=== PATIENT | male | born 1995 | race Caucasian/White ===

== ENCOUNTER 2016-07-23 13:09 | Emergency (ER) | payer SELFPAY ==
[~2016-07-23] VITALS: Ht 167.6 cm; Wt 65.8 kg
[2016-07-23 13:50] VITALS: BP 115/83
[2016-07-23] MEDS ORDERED: NAPROXEN 500 MG TABLET PO STA (14:16)
[2016-07-23] MEDS ORDERED: DICL100G7 TP (14:21)
[2016-07-23] MEDS ORDERED: METH4TAB2 PO (14:21)
[2016-07-23] MEDS ORDERED: HYDR-971 PO (14:21)
[2016-07-23] MEDS ORDERED: CYCL10TA2 PO (14:21)
[2016-07-23] MEDS ORDERED: NAPR500T8 PO (14:21)
--- NOTE | 2016-07-23 14:21 | PHYS DOC ---
Adult General Chief Complaint Chief Complaint: BACK PAIN OR INJURY HPI HPI Patient is a 21 year old male with no significant medical history who presents today with moderate throbbing bilateral thoracic pain worse on movement that began 3 days ago. Patient states he does heavy lifting at work. He states he works at a company that makes [employer] and he has to lift 50 pounds overweight. Patient denies the pain radiating to bilateral upper or lower extremities. Denies any numbness or tingling to bilateral lower upper or lower extremities. Denies any loss of bowel bladder function. Denies any urgency frequency dysuria. Denies any hematuria. Denies any history of kidney stones. Review of Systems Review of Systems Constitutional: Denies fever or chills [] Eyes: Denies change in visual acuity, redness, or eye pain [] HENT: Denies nasal congestion or sore throat [] Musculoskeletal: Thoracic pain Integument: Denies rash or skin lesions [] Neurologic: Denies headache, focal weakness or sensory changes [] Endocrine: Denies polyuria or polydipsia [] Current Medications Current Medications Current Medications Medications (Trade) Dose Ordered Sig/Carrie Start Time Stop Time Status Last Admin Dose Admin Acetaminophen/ Hydrocodone Bitart (Lortab 5/325) 1 tab 1X ONCE 07/23/16 14:30 07/23/16 14:31 Cyclobenzaprine HCl (Flexeril) 10 mg 1X ONCE 07/23/16 14:30 07/23/16 14:31 Naproxen (Naprosyn) 500 mg 1X STAT 07/23/16 14:16 07/23/16 14:20 DC Prednisone (Prednisone) 60 mg 1X ONCE 07/23/16 14:30 07/23/16 14:31 Allergies Allergies Allergies Coded Allergies Type Severity Reaction Last Updated Verified aloe vera Allergy Unknown 07/23/16 No Physical Exam Physical Exam Constitutional: Well developed, well nourished, no acute distress, non-toxic appearance. [] HENT: Normocephalic, atraumatic, bilateral external ears normal, oropharynx moist, no oral exudates, nose normal. [] Eyes: PERRLA, EOMI, conjunctiva normal, no discharge. [] Skin: Warm, dry, no erythema, no rash. [] Back: Diffuse paraspinal muscle tenderness to thoracic muscles, no midline thoracic spine tenderness, no CVA tenderness. [] Extremities: No tenderness, no cyanosis, no clubbing, ROM intact, no edema. [] Neurologic: Alert and oriented X 3, normal motor function, normal sensory function, no focal deficits noted. [] Psychologic: Affect normal, judgement normal, mood normal. [] Current Patient Data Vital Signs Vital Signs Date Time Temp Pulse Resp B/P (MAP) Pulse Ox O2 Delivery O2 Flow Rate FiO2 07/23/16 13:50 97.8 54 16 98 Room Air 97.8 EKG EKG [] Radiology/Procedures Radiology/Procedures [] Course & Med Decision Making Course & Med Decision Making Pertinent Labs and Imaging studies reviewed. (See chart for details) Patient is in the ED with thoracic muscle strain, patient was discharged with pain medicine and muscle relaxers. Follow-up with primary care doctor in one week. Dragon Disclaimer Dragon Disclaimer This electronic medical record was generated, in whole or in part, using a voice recognition dictation system. Departure Departure Impression: Primary Impression: Acute thoracic myofascial strain Disposition: 01 HOME, SELF-CARE Condition: STABLE Referrals: KSENIA HECK (PCP) Follow-up with your own doctor in one week Patient Instructions: Thoracic Strain Additional Instructions: You were seen for thoracic muscle strain. Take the prescribed pain medicine as ordered. Do not drive on the muscle relaxer and hydrocodone. You can apply heat to your back. Scripts Diclofenac Sodium (VOLTAREN) 100 Gm Gel..gram. 1 GM TP QID, #100 GM 2 Refills apply to the back Prov: CY COATES APRN 07/23/16 Cyclobenzaprine Hcl (CYCLOBENZAPRINE HCL) 10 Mg Tablet 1 TAB PO TID, #30 TAB Prov: CY COATES APRN 07/23/16 Naproxen (NAPROXEN) 500 Mg Tablet.dr 1 TAB PO BID, #60 TAB 1 Refill Prov: CY COATES APRN 07/23/16 Hydrocodone/Apap 5-325 (NORCO 5-325 TABLET) 1 Each Tablet 1-2 TAB PO Q4-6HRS, #14 TAB Prov: CY COATES APRN 07/23/16 Methylprednisolone (MEDROL) 4 Mg Tab.ds.pk 1 PKG PO UD, #1 PKG Prov: CY COATES APRN 07/23/16 Problem Qualifiers Primary Impression: Acute thoracic myofascial strain Encounter type: initial encounter Qualified Codes: S29.019A - Strain of muscle and tendon of unspecified wall of thorax, initial encounter CY COATES SWING FRAME GRINDER OPERATOR Jul 23, 2016 14:21
[2016-07-23] MEDS ORDERED: predniSONE 20 MG TABLET PO ONE (14:30)
[2016-07-23] MEDS ORDERED: HYDROcodone/APAP 5/325MG 1 TAB TABLET PO ONE (14:30)
[2016-07-23] MEDS ORDERED: CYCLOBENZAPRINE 10 MG TABLET. PO ONE (14:30)
== END 2016-07-23 14:36 | disposition home or self-care (01) ==
LOC: ER 13:09
DX: S29.012A Strain of muscle and tendon of back wall of thorax, initial encounter (principal); Z91.048 Other nonmedicinal substance allergy status; X58.XXXA Exposure to other specified factors, initial encounter; Y93.89 Activity, other specified; Y92.69 Other specified industrial and construction area as the place of occurrence of the external cause; Y99.8 Other external cause status
CPT/HCPCS: 99284; J7512

== ENCOUNTER 2017-04-09 18:58 | Emergency (ER) | payer SELFPAY ==
[2017-04-09] MEDS: IPRATRPIUM/ALBUTEROL 0.5/2.5MG 3 ML NEBU. NEB ×2 (19:25)
[2017-04-09 19:52] LABS: INFLUENZA A PATIENT POSITIVE (NEGATIVE); INFLUENZA B PATIENT NEGATIVE (NEGATIVE); OBC FLU VALID
== END 2017-04-09 20:08 | disposition home or self-care (01) ==
LOC: ER 18:58
DX: J20.9 Acute bronchitis, unspecified (principal); J09.X2 Influenza due to identified novel influenza A virus with other respiratory manifestations
CPT/HCPCS: 87804; 87804-59; 94640; 99284; J7620

== ENCOUNTER 2019-01-07 17:08 | Emergency (ER) | payer SELFPAY ==
[~2019-01-07] VITALS: Ht 167.6 cm; Wt 68.0 kg
[~2019-01-07 17:08] MED LIST: ALBU2.5V5 NEB; ALBU2.5V8 INH; AZIT250T PO; CYCL10TA2 PO; DICL100G18 TP; HYDR-3164 PO; METH4TAB2 PO; NAPR500T8 PO; PRED50TA PO
[2019-01-07 17:55] VITALS: BP 124/63
--- NOTE | 2019-01-07 18:08 | PHYS DOC ---
Past Medical History Past Medical History: No Pertinent History (SOL GARRETT APRN) Past Surgical History: No Surgical History (SOL GARRETT APRN) Additional Information: 1/2 PK/DAY Alcohol Use: None Drug Use: None (SOL GARRETT APRN) Attending Signature I have participated in the care of this patient and I have reviewed and agree with all pertinent clinical information above including history, exam, and recommendations. (DENIS MCPHERSON MD) Adult General Chief Complaint Chief Complaint: Congestion HPI HPI Patient is a 23 year old Male who presents with nasal congestion that started 3 days ago and he started taking kvej-luo-jdetykw cold medication and he bought Amoxicillin and took 2 tablets BID for 4 days and then last night began having a diarrhea. He states that he had one stool last night and took immodium and then states he has held it all day so he didnt go anymore. (SOL GARRETT APRN) Review of Systems Review of Systems HENT: nasal congestion or denies sore throat [] GI: Denies abdominal pain, nausea, vomiting, bloody stools. + diarrhea [] All other systems were reviewed and found to be within normal limits, except as documented in this note. (SOL GARRETT APRN) Allergies Allergies Allergies Coded Allergies Type Severity Reaction Last Updated Verified aloe vera Allergy Unknown 07/23/16 No (DENIS MCPHERSON MD) Physical Exam Physical Exam Constitutional: Well developed, well nourished, no acute distress, non-toxic appearance. [] HENT: Normocephalic, atraumatic, bilateral external ears normal, oropharynx moist, no oral exudates, nose normal.Nasal congestion. [] Eyes: PERRLA, EOMI, conjunctiva normal, no discharge. [] Neck: Normal range of motion, no tenderness, supple, no stridor. [] Cardiovascular:Heart rate regular rhythm, no murmur [] Lungs & Thorax: Bilateral breath sounds clear to auscultation [] Abdomen: Bowel sounds normal, soft, no tenderness, no masses, no pulsatile masses. [] Skin: Warm, dry, no erythema, no rash. [] Back: No tenderness, no CVA tenderness. [] Extremities: No tenderness, no cyanosis, no clubbing, ROM intact, no edema. [] Neurologic: Alert and oriented X 3, normal motor function, normal sensory function, no focal deficits noted. [] Psychologic: Affect normal, judgement normal, mood normal. [] (SOL GARRETT APRN) Current Patient Data Vital Signs Vital Signs Date Time Temp Pulse Resp B/P (MAP) Pulse Ox O2 Delivery O2 Flow Rate FiO2 01/07/19 17:55 98.7 77 18 124/63 (83) 97 Room Air 98.7 (DENIS MCPHERSON MD) EKG EKG [] (SOL GARRETT APRN) Radiology/Procedures Radiology/Procedures [] (SOL GARRETT APRN) Course & Med Decision Making Course & Med Decision Making The patient that he does not need any more antibiotic. I told the patient that he probably started having diarrhea because he is taking such high doses of amoxicillin. Patient to continue taking tbcp-jjd-evfqtvh Delsym cold medication and start trying to use a nasal spray and continue using Imodium if he is having any diarrhea. Abdomen is soft and nontender. Bowel sounds within normal limits. Denies fever, nausea, vomiting, chest pain, shortness of air, dizziness, headache, cough. Patient states he is eating and drinking appropriately. Speaks in full clear sentences. Ambulatory with a steady gait. Skin pink warm and dry. Mucous membranes are moist. Patient has a medical screening down and he is told to continue lmjw-bzv-ulyudzv medications. After registration into the room to speak with the patient patient chose not to continue care.[] (SOL GARRETT APRN) Dragon Disclaimer Dragon Disclaimer This electronic medical record was generated, in whole or in part, using a voice recognition dictation system. (SOL GARRETT APRN) Departure Departure Impression: Primary Impression: Congestion of nasal sinus Additional Impression: Diarrhea Disposition: 01 HOME, SELF-CARE Condition: STABLE Referrals: NO PCP (PCP) Patient Instructions: Diarrhea Additional Instructions: Continue using oagr-awg-zgqosam cold medication and use nasal spray. Continue using Imodium if you have diarrhea. Take plenty fluids. Problem Qualifiers Additional Impression: Diarrhea Diarrhea type: unspecified type Qualified Codes: R19.7 - Diarrhea, unspec ified SOL GARRETT APRN Jan 07, 2019 18:08 DENIS MCPHERSON MD Jan 08, 2019 03:56
== END 2019-01-07 18:20 | disposition home or self-care (01) ==
LOC: ER 17:08
DX: R09.81 Nasal congestion (principal); R19.7 Diarrhea, unspecified
CPT/HCPCS: 99281

== ENCOUNTER 2020-05-14 12:32 | Observation (INO) | payer SELFPAY ==
[~2020-05-14] VITALS: Ht 167.6 cm; Wt 80.4 kg
[~2020-05-14 12:32] MED LIST changes: -DICL100G18 TP; +DICL100G54 TP
[2020-05-14 12:51] LABS: BILIRUBIN,URINE NEGATIVE (NEG); CLARITY,URINE CLEAR; COLOR,URINE YELLOW; NITRITE,URINE NEGATIVE (NEG); PH,URINE 7.5 (<5.0-8.0); PROTEIN,URINE NEGATIVE (NEG-TRACE); UROBILINOGEN,URINE 0.2 mg/dL (0.2 mg/dL)
[2020-05-14 12:58] LABS: BARBITURATES NEG (NEG); BENZODIAZEPINES NEG (NEG); CANNABINOIDS POS (NEG); COCAINE NEG (NEG); METHADONE NEG (NEG); OPIATES NEG (NEG); PHENCYCLIDINE NEG (NEG)
--- NOTE | 2020-05-14 12:59 | PHYS DOC ---
Past Medical History Past Medical History: No Pertinent History (SOL GARRETT BOX COVERER HAND) Past Surgical History: No Surgical History (SOL GARRETT BOX COVERER HAND) Smoking Status: Current Every Day Smoker Alcohol Use: None Drug Use: None (SOL GARRETT BOX COVERER HAND) General Adult EDM: Chief Complaint: OVERDOSE HPI: HPI: Patient is a 25 year old male who presents with states that he thinks he may have overdosed but is unsure what he took. He states that is been hard for him to urinate. He states that he thinks he has been eating and drinking enough fluid. States he vomited once yesterday. He states that he began having body aches and a headache and some nausea last night. He states that 2:00 this morning he took 2 extra strength Tylenol and then about 5:00 this morning took 1 Aleve. Patient denies any other drug use except for marijuana. He states that last week it made him sick to his stomach when he drank so he quit drinking last week. He states he does not drink frequently. Patient is complaining of body aches and a headache. He rates his muscle pain and headache an 8 out of 10. It is not the worst headache he has ever had. Patient denies any past medical h istory. Patient girlfriend states that somebody has been giving him the small pills that they call "oxi" and she is unsure of what they are exactly. She states that he was slumped over on the couch all morning and was hard to arouse and she is unsure of what he is been taking. She states that she knows that he last took this unknown substance yesterday. Girlfriend states that she is unaware of how much he took. Patient denies chest pain, shortness of breath, cough, fever, nausea, diarrhea, syncope, dizziness, vision changes, numbness or tingling, depression, SI, HI, being around other sick contacts. (SOL GARRETT BOX COVERER HAND) Review of Systems: Review of Systems: Constitutional: Denies fever or chills. [] Eyes: Denies change in visual acuity. [] HENT: Denies nasal congestion or sore throat. [] Respiratory: Denies cough or shortness of breath. [] Cardiovascular: Denies chest pain or edema. [] GI: + Intermittent abdominal pain, denies nausea, +vomiting x1, denies bloody stools or diarrhea. + Unknown substance ingestion [] : Denies dysuria. [] Musculoskeletal: Denies back pain or joint pain. + Generalized body aches [] Integument: Denies rash. [] Neurologic: + headache, denies focal weakness or sensory changes. [] Endocrine: Denies polyuria or polydipsia. [] Lymphatic: Denies swollen glands. [] Psychiatric: Denies depression or anxiety. [] ([facility]) Heart Score: C/O Chest Pain: No Risk Factors: Risk Factors: DM, Current or recent (<one month) smoker, HTN, HLP, family history of CAD, obesity. Risk Scores: Score 0 - 3: 2.5% MACE over next 6 weeks - Discharge Home Score 4 - 6: 20.3% MACE over next 6 weeks - Admit for Clinical Observation Score 7 - 10: 72.7% MACE over next 6 weeks - Early Invasive Strategies ([facility]) Allergies: Allergies: Allergies Coded Allergies Type Severity Reaction Last Updated Verified aloe vera Allergy Unknown 07/23/16 No ([facility]) Physical Exam: PE: Constitutional: Well developed, well nourished, no acute distress, non-toxic appearance. [] HENT: Normocephalic, atraumatic, bilateral external ears normal, oropharynx moist, no oral exudates, nose normal. [] Eyes: PERRLA, EOMI, conjunctiva normal, no discharge. [] Neck: Normal range of motion, no tenderness, supple, no stridor. [] Cardiovascular:Heart rate regular rhythm, no murmur [] Lungs & Thorax: Bilateral breath sounds clear to auscultation [] Abdomen: Bowel sounds normal, soft, no tenderness, no masses, no pulsatile masses. [] Skin: Warm, dry, no erythema, no rash. [] Back: No tenderness, no CVA tenderness. [] Extremities: No tenderness, no cyanosis, no clubbing, ROM intact, no edema. [] Neurologic: Alert and oriented X 3, normal motor function, normal sensory function, no focal deficits noted. [] Psychologic: Affect normal, judgement normal, mood normal. Normal physical exam [] (SOL GARRETT APRN) EKG: EK and read by Dr. Ivy is sinus bradycardia and no STEMI. (SOL GARRETT APRN) Radiology/Procedures: Radiology/Procedures: [] Impression: [facility] [address] [place] [address] IMAGING REPORT Signed PATIENT: DUDLEY CASIANO ACCOUNT: [id number] : 1995 LOCATION: ER AGE: 25 SEX: M EXAM STATUS: PRE ER ORD. PHYSICIAN: SOL GARRETT APRN REASON: bodyaches. PROCEDURE: PORTABLE CHEST 1V EXAMINATION: XR CHEST 1V CLINICAL HISTORY: Body aches EXAM DATE/TIME: 05/14/2020 1:23 PM COMPARISON: None FINDINGS: Lines, Tubes, and Devices: None. Cardiomediastinal Silhouette: Within normal limits. Lungs and Pleura: No evidence of focal airspace consolidation or pleural effusion. Pulmonary vasculature unremarkable. Bones and Soft Tissues: No acute osseous abnormality. IMPRESSION: No evidence of acute cardiopulmonary abnormality. Electronically signed by: Spike Muse DO (05/14/2020 1:29 PM) [id number] DICTATED and SIGNED BY: SPIKE MUSE DO DATE: 05/14/20 [id number] (SOL GARRETT APRN) Course & Med Decision Making: Course & Med Decision Making Pertinent Labs and Imaging studies reviewed. (See chart for details) See HPI. Speaks in full clear sentences. Alert and oriented x4. Ambulatory with a steady gait. Abdomen is soft and nontender. PERRLA. Skin pink warm and dry. Vital signs are within normal limits. Answers all questions appropriately. Patient admitted to the nurse after head of the room that he went to a alliance party couple days ago and snorted some drugs but is unsure of what he took. Patient's heart rate is bradycardic at 39 to low 40s. He is asymptomatic at this time. I spoke to poison control and they stated to just do supportive care. Patient's UDS and alcohol level are negative. He was however positive for marijuana. To be running from 40-50 heart rate. Blood work shows no acute findings. After speaking with the patient he states that there are times that he gets really dizzy and drowsy and then will start to feel better. This could correspond or be symptomatic bradycardia. Patient agrees to be observed overnight. I will consult cardiology. He will be admitted by the hospitalist. I have spoken to Dr. Blue concerning this patient. [] (SOL GARRETT APRN) Dragon Disclaimer: Dragon Disclaimer: This electronic medical record was generated, in whole or in part, using a voice recognition dictation system. (SOL GARRETT APRN) Departure Departure Impression: Primary Impression: Bradycardia Additional Impression: Drug use Disposition: ADMITTED INPT THIS HOSP Admitting Physician: [place] (SOL GARRETT APRN) Condition: STABLE Referrals: NO PCP (PCP) Attending Signature Attending Signature I have reviewed the PA/COMMUNITY HEALTH WORKER's note and plan of care. I was available for consultation as needed during the patient's visit in the emergency department. I agree with the clinical impression, plan, and disposition. (REESE IVY DO) SOL GARRETT APRN May 14, 2020 12:59 REESE IVY DO May 14, 2020 18:51
[2020-05-14] MEDS ORDERED: IV NORMAL SALINE 1000ML BAG 1,000 ML IV ONE (13:00)
[2020-05-14 13:05] LABS: BASO % 1 % (0-3); EOS # 0.1 x10^3/uL (0.0-0.7); EOS % 2 % (0-3); HEMOGLOBIN 15.3 g/dL (13.0-17.5); LYMPH # 1.8 x10^3/uL (1.0-4.8); LYMPH % 28 % (24-48); MEAN CORPUSCULAR HEMOGLOBIN 32 pg (25-35); MEAN CORPUSCULAR HGB CONC 35 g/dL (31-37); MEAN CORPUSCULAR VOLUME 92 fL (79-100); MONO # 0.4 x10^3/uL (0.0-1.1); MONO % 6 % (0-9); NEUT # 4.1 x10^3/uL (1.8-7.7); NEUT % 64 % (31-73); PLATELET COUNT 190 x10^3/uL (140-400); RED BLOOD COUNT 4.77 x10^6/uL (4.30-5.70); RED CELL DISTRIBUTION WIDTH 12.6 % (11.5-14.5); WHITE BLOOD COUNT 6.4 x10^3/uL (4.0-11.0)
[2020-05-14 13:10] LABS: AMPHETAMINE/METHAMPHETAMINE NEG (NEG)
[2020-05-14 13:13] LABS: AMORPHOUS SEDIMENT,UR PRESENT /HPF
[2020-05-14 13:14] LABS: RBC,URINE 0 /HPF (0-2); WBC,URINE OCC /HPF (0-4)
[2020-05-14 13:15] LABS: BACTERIA,URINE 0 /HPF (0-FEW)
[2020-05-14 13:19] LABS: CALCIUM 8.8 mg/dL (8.5-10.1); CREATININE 0.9 mg/dL (0.7-1.3); GFR 103.7; POTASSIUM 4.6 mmol/L (3.5-5.1)
[2020-05-14 13:22] LABS: PROTHROMBIN TIME PATIENT 13.4 SEC (11.7-14.0)
[2020-05-14 13:25] LABS: ALBUMIN 3.9 g/dL (3.4-5.0); ALBUMIN/GLOBULIN RATIO 1.4 (1.0-1.7); TOTAL BILIRUBIN 0.4 mg/dL (0.2-1.0); TOTAL PROTEIN 6.7 g/dL (6.4-8.2)
[2020-05-14 13:28] LABS: ACETAMIN < 2 mcg/ml (10-30); ETHANOL < 10 mg/dL (0-10); SALIC < 2.8 mg/dL (2.8-20.0)
--- NOTE | 2020-05-14 13:32 | RAD ---
EXAMINATION: XR CHEST 1V CLINICAL HISTORY: Body aches EXAM DATE/TIME: 05/14/2020 1:23 PM COMPARISON: None FINDINGS: Lines, Tubes, and Devices: None. Cardiomediastinal Silhouette: Within normal limits. Lungs and Pleura: No evidence of focal airspace consolidation or pleural effusion. Pulmonary vasculat ure unremarkable. Bones and Soft Tissues: No acute osseous abnormality. IMPRESSION: No evidence of acute cardiopulmonary abnormality. Electronically signed by: Spike Rahman DO (05/14/2020 1:29 PM) [id number]
--- NOTE | 2020-05-14 13:36 | EKG ---
[facility] [address] [place] [address] Test Date: 2020-05-14 Test Time: 13:07:42 Pat Name: DUDLEY CASIANO Department: Room: Gender: System Trainer: : 1995 Requested By: SOL GARRETT Order Number: [id number] Reading MD: Measurements Intervals [place] Rate: 39 P: 28 NV: 174 QRS: 54 QRSD: 90 T: 36 QT: 444 QTc: 361 Interpretive Statements SINUS BRADYCARDIA NON SPECIFIC ST-T ABNORMALITY (ELEVATION) ABNORMAL ECG RI6.02 No previous ECG available for comparison
[2020-05-14] MEDS ORDERED: KETOROLAC 30 MG/ML VIAL. IVP ONE (13:45)
[2020-05-14 14:16] LABS: INFLUENZA A PATIENT NEGATIVE (NEGATIVE); INFLUENZA B PATIENT NEGATIVE (NEGATIVE)
[2020-05-14] MEDS ORDERED: ONDANSETRON PF 4 MG/2 ML VIAL. IV PRN (15:00)
[2020-05-14] MEDS ORDERED: ACETAMINOPHEN 325 MG TABLET. PO PRN (15:00)
--- NOTE | 2020-05-14 17:25 | HP ---
ADMIT DATE: 05/14/2020 CHIEF COMPLAINT: Weakness, mental status change, inability to wake up, possible overdose. HISTORY OF PRESENT ILLNESS: The patient is a pleasant 25-year-old healthy male who states, he took an unknown substance. He thinks it may have been OxyContin; however, he thinks it may have been stake OxyContin. He states he has been having hard time urinating. He did vomit once yesterday. He has been having some body aches and so took some Tylenol this morning as well. Apparently, his girlfriend did explain to the ER that somebody has been giving him small pills that they called "Oxy" but they are not exactly sure what they are. Today, he has been slumped over the couch, she had a hard time wakening him up. We thought for sure he would be positive on his drug screen, but surprisingly is negative other than for marijuana. I discussed the case with ER physician, we are going to admit the patient overnight for observation. PAST MEDICAL HISTORY: Probable drug abuse, tobacco abuse. ALLERGIES: ALOE VERA. FAMILY HISTORY: Diabetes. SOCIAL HISTORY: He smokes. I guess is he takes drugs. MEDICATIONS: Reviewed, please see the MRAD. REVIEW OF SYSTEMS: GENERAL: No history of weight change, weakness or fevers. SKIN: No bruising, hair changes or rashes. EYES: No blurred, double or loss of vision. NOSE AND THROAT: No history of nosebleeds, hoarseness or sore throat. HEART: No history of palpitations, chest pain or shortness of breath on exertion. LUNGS: Denies cough, hemoptysis, wheezing or shortness of breath. GASTROINTESTINAL: Denies changes in appetite, nausea, vomiting, diarrhea or constipation. GENITOURINARY: No history of frequency, urgency, hesitancy or nocturia. NEUROLOGIC: Denies history of numbness, tingling, tremor or weakness. PSYCHIATRIC: No history of panic, anxiety or depression. ENDOCRINE: No history of heat or cold intolerance, polyuria or polydipsia. EXTREMITIES: Denies muscle weakness, joint pain, pain on walking or stiffness. PHYSICAL EXAMINATION: VITALS: Within normal limits and are stable. GENERAL: No apparent distress. Alert and oriented. HEENT: Normal cephalic atraumatic, external auditory canals are patent EYES: Extraocular muscles are intact, pupils are equally round and reactive to light and accommodation MUSCULOSKELETAL: Well developed, well nourished, good range of motion ENDOCRINE: No thyromegaly was palpated LYMPHATICS: No cervical chain or axillary nodes were noted HEMATOPOIETIC: No bruising NECK: Supple, no JVD, no thyromegaly was noted. LUNGS: Clear to auscultation in all lung daley without rhonchi or wheezing. HEART: RRR, S1, S2 present. Peripheral pulses intact, no obvious murmurs were noted. ABDOMEN: Soft, nontender. Positive bowel sounds no organomegaly, normal bowel sounds. EXTREMITIES: Without any cyanosis, clubbing, or edema. Pedal pulses intact, Homans sign is negative. NEUROLOGIC: Normal speech, normal tone. A & O x3, moves all extremities, no obvious focal deficits. PSYCHIATRIC: Normal affect, normal mood. Stable. SKIN: No ulcerations or rashes, good skin turgor, no jaundice. VASCULAR: Good capillary refill, neurovascular bundle appears to be intact. LABORATORY DATA: Salicylates less than less than 2.8. Tylenol less than 2. Cannabinoids positive. All other drug screen was negative. White count 6, hemoglobin 15, platelets 190. Electrolytes are normal other than a slightly low anion gap of 5. INR is 1.1. Urinalysis is negative. Influenza testing is negative. Chest x-ray negative. ASSESSMENT AND PLAN: Probable drug overdose of uncertain type (he thinks he took Oxy, but his drug screen is negative). Basically we are going to observe him overnight. He was noted to have some bradycardia in the ER, down to 39, so we are going to go ahead and monitor his heart and consult Cardiology. Home meds, DVT prophylaxis. Full code. P.r.n. Zofralek, p.r.n. Tylenol. PT, OT evaluate and treat. Rule out COVID-19. IV fluids. QING TYLER DO DR: REGINE/boris JOB#: [id number] / [id number]
[2020-05-14 18:01] VITALS: BP 120/67
--- NOTE | 2020-05-14 19:30 | NUR ---
At shift change when I entered room for shift assessment pt states he wants to go AMA and leave the hospital. Pt is alert and oriented x4, in no distress. He declined an assessment by me at this time, does not want to do anything else with the hospital care besides leave. I asked if there was anything we could do to help him be more comfortable or anything he needed in order to stay. Pt states no, he just wants to leave. We discussed that the physician wanted to monitor him overnight and to monitor his heart rate that his heart rate was low at admit. Pt verbalized understanding. He understands that he is leaving against medical advice of the physician. A female friend at bedside states that she is his ride home and lives with him. IV taken out, heart monitor taken off. Pt assisted to front door by nurse assistant sales manager Bharti. Items and belongings with patient. Pt signed AMA paperwork. was paged at [phone] message left with service.
[2020-05-14 19:31] VITALS: BP 140/89
--- NOTE | 2020-05-14 20:04 | NUR ---
called unit back at this time, I informed the physician that the patient left AMA (see other nurse note-all of that information was told to physician). No orders received.
[2020-05-15] MEDS ORDERED: ONDA4TAB7 PO (12:58)
== END 2020-05-14 19:26 | disposition left against medical advice (07) ==
LOC: ER 12:32 → 2 NORTH 14:57
PROVIDERS: ADMIT Internal Medicine; ATTEND Internal Medicine
DX: T50.901A Poisoning by unspecified drugs, medicaments and biological substances, accidental (unintentional), initial encounter (principal); Z20.822 Contact with and (suspected) exposure to COVID-19; R00.1 Bradycardia, unspecified; F17.200 Nicotine dependence, unspecified, uncomplicated; Z71.51 Drug abuse counseling and surveillance of drug abuser; Z79.899 Other long term (current) drug therapy
CPT/HCPCS: 36415; 71045; 80053; 80307; 80329; 81001; 83690; 84484; 85025; 85610; 87804; 93005; 96361; 96374; 99285; G0378; G0480; J1885; J7030; U0003; G0379

== ENCOUNTER 2020-05-15 12:32 | Emergency (ER) | payer SELFPAY ==
[~2020-05-15] VITALS: Ht 167.6 cm; Wt 77.0 kg
[2020-05-15 12:40] VITALS: BP 150/83
[2020-05-15] MEDS ORDERED: ONDA4TAB7 PO (12:58)
--- NOTE | 2020-05-15 12:58 | PHYS DOC ---
Past Medical History Past Medical History: No Pertinent History Past Surgical History: No Surgical History Smoking Status: Current Every Day Smoker Alcohol Use: Occasionally Drug Use: None General Adult EDM: Chief Complaint: DRUG ABUSE HPI: HPI: 25-year-old male presenting with opiate withdrawal. He stopped taking opiates about 2 days ago. Since then he has felt nauseous has hard time sleeping and feels mildly jittery. He denies any pain other than just generalized muscle aches. Onset 2 days. Location generalized. Duration intermittent. No alleviating factors. ED course: 25-year-old male presenting for opiate withdrawal. On arrival the patient's vital signs are within normal limits he is well-appearing with a normal physical exam. He denies suicidal or homicidal ideation. We will discharge him and refer him to outpatient [facility] for medical opiate withdrawal. The patient has been examined and was not found to have an emerg ency medical condition. The patient was then discharged home in stable condition to follow up with their primary care physician over the next 1-2 days. They were to return if their symptoms worsened or if they were concerned for any reason. They were also instructed to return to the emergency department if they were unable to get the recommended and appropriate follow-up. [id number] discharge instructions and return precautions were given. Patient's questions were answered to their satisfaction. Patient is comfortable with plan. Review of Systems: Review of Systems: Constitutional: Denies fever or chills. [] Eyes: Denies change in visual acuity. [] HENT: Denies nasal congestion or sore throat. [] Respiratory: Denies cough or shortness of breath. [] Cardiovascular: Denies chest pain or edema. [] GI: Denies abdominal pain, nausea, vomiting, bloody stools or diarrhea. [] : Denies dysuria. [] Musculoskeletal: Denies back pain or joint pain. [] Integument: Denies rash. [] Neurologic: Denies headache, focal weakness or sensory changes. [] Endocrine: Denies polyuria or polydipsia. [] Lymphatic: Denies swollen glands. [] Psychiatric: Denies depression or anxiety. [] Heart Score: C/O Chest Pain: No Risk Factors: Risk Factors: DM, Current or recent (<one month) smoker, HTN, HLP, family history of CAD, obesity. Risk Scores: Score 0 - 3: 2.5% MACE over next 6 weeks - Discharge Home Score 4 - 6: 20.3% MACE over next 6 weeks - Admit for Clinical Observation Score 7 - 10: 72.7% MACE over next 6 weeks - Early Invasive Strategies Allergies: Allergies: Allergies Coded Allergies Type Severity Reaction Last Updated Verified aloe vera Allergy Unknown 07/23/16 No Physical Exam: PE: Constitutional: Well developed, well nourished, no acute distress, non-toxic appearance. [] HENT: Normocephalic, atraumatic, bilateral external ears normal, oropharynx moist, no oral exudates, nose normal. [] Eyes: PERRLA, EOMI, conjunctiva normal, no discharge. [] Neck: Normal range of motion, no tenderness, supple, no stridor. [] Cardiovascular:Heart rate regular rhythm, no murmur [] Lungs & Thorax: Bilateral breath sounds clear to auscultation [] Abdomen: Bowel sounds normal, soft, no tenderness, no masses, no pulsatile masses. [] Skin: Warm, dry, no erythema, no rash. [] Back: No tenderness, no CVA tenderness. [] Extremities: No tenderness, no cyanosis, no clubbing, ROM intact, no edema. [] Neurologic: Alert and oriented X 3, normal motor function, normal sensory function, no focal deficits noted. [] Psychologic: Psych Examination: General appearance and behavior: well groomed, maintains good eye contact Speech: normal rate and flow, not pressured Affect: congruent with mood Mood: euthymic Perception: no illusions or hallucinations Safety: denies suicidal, homicidal, self-injurious ideas, impulses, or plans Cognition - Level of consciousness: awake - Orientation: oriented to person, place and time - Attention and concentration: nl - Memory (registration, recent and remote): nl - Judgment: nl - Insight: nl EKG: EKG: [] Radiology/Procedures: Radiology/Procedures: [] Course & Med Decision Making: Course & Med Decision Making Pertinent Labs and Imaging studies reviewed. (See chart for details) [] Dragon Disclaimer: Dragon Disclaimer: This electronic medical record was generated, in whole or in part, using a voice recognition dictation system. Departure Departure Impression: Primary Impression: Opiate withdrawal Disposition: 01 DC HOME SELF CARE/HOMELESS Condition: STABLE Referrals: NO PCP (PCP) Patient Instructions: Drug Abuse, FAQs Additional Instructions: Follow-up with outpatient substance abuse rehabilitation center in 1 to 2 days. Return for any new or concerning symptoms. Scripts Ondansetron Hcl (ZOFRAN) 4 Mg Tablet 1 TAB PO PRN Q6-8HRS, #5 TAB Prov: RICKY BRANTLEY MD 05/15/20 RICKY BRANTLEY MD May 15, 2020 12:58
--- NOTE | 2020-05-17 09:58 | NUR ---
IP: Attempted to contact pt concerning his COVID results. No answer, voicemail box full. Sent a SMS with a phone number to call back.
== END 2020-05-15 13:10 | disposition home or self-care (01) ==
LOC: ER 12:32
DX: F11.23 Opioid dependence with withdrawal (principal); F17.200 Nicotine dependence, unspecified, uncomplicated; Z88.8 Allergy status to other drugs, medicaments and biological substances
CPT/HCPCS: 99283